=== PATIENT | female | born 1970 | race African-American/Black ===

== ENCOUNTER 2019-08-15 08:16 | Emergency (ER) | payer BC, SELFPAY ==
--- NOTE | ~2019-08-15 | XR_ITS ---
EXAMINATION: XR abdomen/kub 1V EXAM DATE: 08/15/2019 09:40 INDICATION: Left flank pain. TECHNIQUE: Frontal projection of the upper abdomen, frontal projection lower abdomen/pelvis for inter pretation. There is no prior study for comparison. FINDINGS: There is moderate to large amount of colonic stool and gas. No small bowel dilation, nono bstructive bowel gas pattern. Calcifications in the pelvis are believed to be phleboliths. There i s no organomegaly suspected. The bones are unremarkable. There is no free intraperitoneal air. T he lung bases are clear. IMPRESSION: Moderate to large amount of colonic stool. Reviewed, dictated and finalized at location A.
[2019-08-15 08:19] VITALS: BP 122/77; PULSE 59; RESP 16; TEMP 36.6; O2SAT 100
[2019-08-15 09:22] LABS: Basophils Percent Auto 0.5 % (0.2-1.2); Eosinophils Absolute Auto 0.1 K/mm3 (0-0.3); Eosinophils Percent Auto 1.3 % (0-4.4); Hematocrit 34.6 % (37.0-47.0); Hemoglobin 10.9 g/dL (12.0-15.0); Immature Granulocyte Absolute 0.01 K/mm3 (0.00-0.031); Immature Granulocyte Percent A 0.2 % (0-0.5); Lymphocytes Absolute Auto 2.73 K/mm3 (0.9-3.2); Lymphocytes Percent Auto 43.5 % (18.3-44.2); Mean Corpuscular HGB Conc 31.5 g/dl (32-36); Mean Corpuscular Hemoglobin 26.4 pg (26-34); Mean Corpuscular Volume 83.8 fl (80-100); Mean Platelet Volume 9.9 fl (7.4-10.4); Monocytes Absolute Auto 0.4 K/mm3 (0.1-0.6); Neutrophils Percent Auto 47.5 % (45.5-73.1); Platelet Count Result 277 k/mm3 (150-375); Red Blood Count 4.13 M/mm3 (4.2-5.4); Red Cell Distribution Width 14.1 % (11.5-14.5); White Blood Count 6.3 K/mm3 (4.5-10.0)
[2019-08-15 09:34] LABS: Alanine Aminotransferase 10 U/L (4-35); Albumin Level 3.5 g/dL (3.5-5.1); Alkaline Phosphatase 66 U/L (38-126); Aspartate Amino Transferase 17 U/L (14-36); Bilirubin,Total 0.1 mg/dL (0.2-1.3); Blood Urea Nitrogen 13 mg/dL (7-17); Calcium 8.9 mg/dL (8.4-10.2); Carbon Dioxide 22 mmol/L (22-30); Chloride 112 mmol/L (98-107); Estimated CRCL calculation 59 ml/min; Estimated Glomerular Filt Rate > 60; Glucose 108 mg/dL (65-105); Lipase 21 U/L (23-300); Potassium 3.9 mmol/L (3.4-5.0); Sodium 137 mmol/L (137-145)
[2019-08-15 09:58] LABS: Add Urine Microscopic? YES; Appearance Urine Clear (Clear); Bilirubin Urine Negative (Negative); Blood Urine Negative (Negative); Color Urine Yellow (Yellow); Glucose Urine UA Negative (Negative); Ketones Urine Negative (Negative); Leukocyte Esterase Ur 1+ LEU/UL (Negative); Mucus Urine Rare /lpf; Nitrate Urine Negative (Negative); Protein Urine Negative (Negative); Specific Grav Ur 1.025 (1.001-1.035); Squamous Epithelial Cell Urine Rare /hpf (Few); Urobilinogen Urine Negative mg/dL (<2.0)
--- NOTE | 2019-08-15 10:20 | ED.GENADULT ---
HPI - General Adult General Chief complaint: Extremity Injury, Lower Stated complaint: R SIDE PAIN Time Seen by Provider: 08/15/19 09:05 Source: patient Mode of arrival: ambulatory Limitations: no limitations History of Present Illness HPI narrative: Patient is a 49-year-old female who presents to emergency department for evaluation of abdominal pain that is been present for 3 months noting aching pain to the right lower abdomen was seen a few days prior at outside hospital and CAT scan imaging and blood work performed was discharged home with no abnormalities presents noting that she continues to have pain has not followed with primary care or specialty services for this denies any fever chills nausea vomiting or URI symptoms Related Data Allergies Allergy/AdvReac Type Severity Reaction Status Date / Time No Known Allergies Allergy Verified 08/15/19 08:25 Review of Systems Review of Systems: All systems reviewed & are unremarkable except as noted in HPI and below PMFSH Social History Social History (Updated 08/15/19 @ 10:22 by Lasha Strauss PA-C) Smoking status: Never smoker Exam Narrative: Exam Narrative: GENERAL: Well-appearing, well-nourished, and in no acute distress. HEAD: Normocephalic, atraumatic. EYES: PERRLA and EOMI. ENT: Nares clear, no rhinorrhea or epistaxis. Mucous membranes moist. CHEST: Clear to auscultation. No respiratory distress. No wheezes rales or rhonchi HEART: Regular rate and rhythm. No murmur heard. Normal peripheral pulses. ABDOMEN: Soft, right lower abdominal tenderness to palpation, nondistended EXTREMITIES: Normal range of motion. No edema. SKIN: Warm, dry, no rash. NEURO: No focal deficits. Alert and oriented x3. Cranial nerves II through XII grossly intact PSYCH: Normal mood and affect. Course Course Emergency Course: Patient in the room in no distress aware of case findings treatment plan and diagnosis Vital Signs Vital signs: Vital Signs Temperature 97.9 F 08/15/19 08:19 Pulse Rate 59 L 08/15/19 08:19 Respiratory Rate 16 08/15/19 08:19 Blood Pressure 122/77 08/15/19 08:19 Pulse Oximetry 100 08/15/19 08:19 Temperature 97.9 F 08/15/19 08:19 Pulse Rate 59 L 08/15/19 08:19 Respiratory Rate 16 08/15/19 08:19 Blood Pressure 122/77 08/15/19 08:19 Pulse Oximetry 100 08/15/19 08:19 Medical Decision Making MDM Narrative Medical decision making narrative: Patient in the room in no distress afebrile nontoxic appearing no high risk changes in the blood work or imaging felt appropriate for outpatient reevaluation provided with primary care and GI referrals and reasons to return Vital Signs Vital Signs: Vital Signs Temperature 97.9 F 08/15/19 08:19 Pulse Rate 59 L 08/15/19 08:19 Respiratory Rate 16 08/15/19 08:19 Blood Pressure 122/77 08/15/19 08:19 Pulse Oximetry 100 08/15/19 08:19 Temperature 97.9 F 08/15/19 08:19 Pulse Rate 59 L 08/15/19 08:19 Respiratory Rate 16 08/15/19 08:19 Blood Pressure 122/77 08/15/19 08:19 Pulse Oximetry 100 08/15/19 08:19 Lab Data Result diagrams: 08/15/19 09:17 08/15/19 09:17 Labs: Lab Results 08/15/19 08/15/19 08/15/19 Range/Units 09:17 09:17 09:50 WBC 6.3 (4.5-10.0) K/mm3 RBC 4.13 L (4.2-5.4) M/mm3 Hgb 10.9 L (12.0-15.0) g/dL Hct 34.6 L (37.0-47.0) % MCV 83.8 (80-100) fl MCH 26.4 (26-34) pg MCHC 31.5 L (32-36) g/dl RDW 14.1 (11.5-14.5) % Plt Count 277 (150-375) k/mm3 MPV 9.9 (7.4-10.4) fl Immature Gran % (Auto) 0.2 (0-0.5) % Neut % (Auto) 47.5 (45.5-73.1) % Lymph % (Auto) 43.5 (18.3-44.2) % [place] % (Auto) 7.0 (2.6-8.5) % Eos % (Auto) 1.3 (0-4.4) % Baso % (Auto) 0.5 (0.2-1.2) % Lymph # (Auto) 2.73 (0.9-3.2) K/mm3 [place] # (Auto) 0.4 (0.1-0.6) K/mm3 Eos # (Auto) 0.1 (0-0.3) K/mm3 Baso # (Auto) 0.0 (0.0-0.1) K/mm3 Abs Immat Gran (aut
== END 2019-08-15 10:34 | disposition home or self-care (01) ==
PROVIDERS: Emergency Medicine Emergency Medical Services; Emergency Provider Emergency Medicine
DX: R10.30 Lower abdominal pain, unspecified (principal)
CPT/HCPCS: 36415; 51701; 74018; 80053; 81001; 81025; 83690; 85025; 99283